=== PATIENT | female | born 1990 | race Caucasian/White ===

== ENCOUNTER 2022-12-23 02:12 | Inpatient (IN) | payer OTHER, SELFPAY ==
[2022-12-23 02:42] VITALS: BP 129/97; PULSE 79; RESP 18; TEMP 37.1; O2SAT 98; BMI 34.9
[2022-12-23 03:08] LABS: Hematocrit 46.8 % (37.0-47.0); Hemoglobin 15.6 g/dl (12.0-16.0); Mean Corpuscular HGB Conc 33.3 g/dl (31.0-35.0); Mean Corpuscular Hemoglobin 29.8 pg (27.0-33.0); Mean Corpuscular Volume 89.3 fL (80.0-98.0); Mean Platelet Volume 10.4 fL (9.4-12.3); Platelet Count 258 X10*3/uL (160-400); Red Blood Count 5.24 X10*6/uL (4.20-5.50); Red Cell Distribution Width 13.5 % (11.0-16.0); White Blood Count 10.9 X10*3/uL (4.8-10.8)
[2022-12-23 03:20] LABS: Anion Gap 16 (12-20); Blood Urea Nitrogen 7 mg/dL (9-16); Calcium 9.9 mg/dL (8.4-10.2); Carbon Dioxide 23 mmol/L (22-29); Chloride 106 mmol/L (96-108); Creatinine Clr Calc Pharmacy 96.1; Estimated Glomerular Filt Rate > 60; Glucose Random 102 mg/dL (60-115); Potassium 3.8 mmol/L (3.3-5.1); Sodium 141 mmol/L (135-145)
[2022-12-23 03:27] LABS: COVID-19 Test Negative (Negative); IDNOW Serial# 6674DD1D
--- NOTE | 2022-12-23 03:30 | ED_ITS ---
HPI - Psych General Chief Complaint: Psychiatric Symptoms Stated Complaint: CRISIS Time Seen by Provider: 12/23/22 03:04 Source: patient Mode of arrival: ambulatory Limitations: no limitations History of Present Illness HPI Narrative: Patient history of depression used to be on Zoloft started on Prozac for last 1 month and feels is not working and making suicidal with homicidal thoughts, with Zoloft she was sleeping a lot. No hallucination or delusion no suicidal plan as such Related Data Allergies Allergy/AdvReac Type Severity Reaction Status Date / Time No Known Allergies Allergy Verified 12/23/22 02:46 [No Known Allergies*] Review of Systems Review of Systems: Yes all other systems are reviewed and are negative [facility] Social History Social History Advance Directives: No Advance Directives Information Provided: Yes Patient : No Physical Exam Vital Signs: Vital Signs: Last Vital Signs Temp 98.8 F 12/23/22 02:42 Pulse 79 12/23/22 02:42 Resp 18 12/23/22 02:42 BP 129/97 H 12/23/22 02:42 Pulse Ox 98 12/23/22 02:42 O2 Del Method 12/23/22 02:42 BMI result Body Mass Index 34.9 Appearance: Alert. Oriented X3. No acute distress. Eyes: PERRLA, No Nystagmus ENT: Pharynx normal. Oral Mucosa moist Neck: Normal inspection. Neck supple. CVS: Normal heart rate and rhythm. Pulses normal. Respiratory: No respiratory distress. Equal air entry bilateral, no wheezing/rales/rhonchi Abdomen: Soft and nontender. Bowel sounds are present, no mass palpable, no CVA tenderness Skin: Skin warm and dry. Normal skin color. Normal skin turgor. Extremities: No lower extremity edema. No calf tenderness psych: Mood stable no current suicidal thoughts no hallucinations or delusions Neuro: Oriented X 3. No motor deficit. No sensory deficit.No cerebellar signs , cranial nerves II-XII intact Medical Decision Making Medical Decision Making MDM Narrative: Patient depression with increased suicidal thoughts medically cleared for psych care team evaluation Lab Data [facility] Lab Attestation statement: I reviewed the patient's lab results. 12/23/22 03:01 12/23/22 03:01 Labs: Lab Results 12/23/22 12/23/22 12/23/22 Range/Units 02:54 03:01 03:01 WBC 10.9 H (4.8-10.8) X10*3/uL RBC 5.24 (4.20-5.50) X10*6/uL Hgb 15.6 (12.0-16.0) g/dl Hct 46.8 (37.0-47.0) % MCV 89.3 (80.0-98.0) fL MCH 29.8 (27.0-33.0) pg MCHC 33.3 (31.0-35.0) g/dl RDW 13.5 (11.0-16.0) % Plt Count 258 (160-400) X10*3/uL MPV 10.4 (9.4-12.3) fL Absolute Nucleated RBC 0.000 (0.0-0.012) X10*3/uL Nucleated RBC % (auto) 0.0 (0.0-0.2) /100WBC Sodium 141 (135-145) mmol/L Potassium 3.8 (3.3-5.1) mmol/L Chloride 106 (96-108) mmol/L Carbon Dioxide 23 (22-29) mmol/L Anion Gap 16 (12-20) BUN 7 L (9-16) mg/dL Creatinine 0.80 (0.5-1.4) mg/dL Estim Creat Clear Calc 96.1 Estimated GFR > 60 Random Glucose 102 (60-115) mg/dL Calcium 9.9 (8.4-10.2) mg/dL COVID-19 (KYLEE) Negative (Negative) COVID-19 Clin Com See Note Discharge Plan Discharge Clinical Impression: Suicidal ideation, Bipolar disorder Patient Disposition: Still a Patient Interventions: Jenkins-Suicide Risk Severity Scale Last Done: 12/23/22 03:26
--- NOTE | 2022-12-23 06:24 | PC.NURSE ---
Pt resting comfortably on stretcher at this time, denies pain. SI with no plan at this time
--- NOTE | 2022-12-23 07:29 | PC.NURSE ---
Pt resting on stretcher. Patient observer at bedside for 1:1.
--- NOTE | 2022-12-23 11:12 | PC.NURSE ---
Meeting with care team
--- NOTE | 2022-12-23 12:08 | MHC.CARE ---
Pt seen by CARE team and is seeking voluntary inpatient level of care admission, pending transfer to .
--- NOTE | 2022-12-23 15:38 | PC.NURSE ---
Received pt from ED, calm and cooperative. Lunch tray given.
[2022-12-23 19:26] LABS: Amphetamine Screen Urine Not Detected (Not Detect); Barbiturates, Urine Not Detected (Not Detect); Benzodiazepines Screen Urine Not Detected (Not Detect); Cannabinoid Screen Urine Not Detected (Not Detect); Cocaine Screen Urine Not Detected (Not Detect); Fentanyl, urine Not Detected (Not Detect); Opiate Screen Urine Not Detected (Not Detect); Phencyclidine Screen Urine Not Detected (Not Detect)
[2022-12-23 19:38] LABS: Appearance Urine Clear; Color Urine Dark Yellow; Glucose Urine UA Negative (Negative); Leukocyte Esterase Urine Trace (Negative); Nitrite Urine Negative (Negative); PH 6.5 (5.0-9.0); Specific Gravity - Urine >= 1.030 (1.005-1.025); UMIC TRIGGER UA YES; UPreg QC Valid YES; Urine Blood Negative (Negative); Urine Ketones Negative (Negative); Urine Pregnancy NEGATIVE (NEGATIVE); Urine Protein 30 (1+) mg/dL (Neg-Trace)
[2022-12-23 19:43] LABS: Bacteria Urine None Seen (None Seen); Hyaline Casts Urine 0-2 /LPF (0-2); RBC Urine 0-2 /HPF (0-2); Squamous Epithelial Cell Urine 0-2 /HPF (0-2); WBC Urine 0-5 /HPF (0-5)
[2022-12-23 20:40] VITALS: BP 145/79; PULSE 85; TEMP 36.3; O2SAT 97
--- NOTE | 2022-12-23 23:18 | PC.ADMIT ---
Patient is a 32 year old single, Mohawk speaking female admitted as a CV admission to at 2120 and placed on 15 minute safety checks. Patient was medically cleared, evaluated by the CARE team and deemed in need of IPLOC secondary to her SI thoughts. Patient said she was titrated off Zoloft and started Prozac over one month ago. Patient self presented to the [facility] because the suicidal thoughts are not normal for her. She has no previous history of IPLOC and is not familiar to the CARE team. During the admission process patient was cooperative but somewhat reticent to offer much information and seemed a bit nervous answering questions. She did say that she was not currently having any SI but would alert staff. She said that she needs to have her medications evaluated and see if she needs to be on a different type of medication(s). Patient mentioned in passing, Maybe I'm Bipolar or something . Patient's treatment plan and safety tool were completed but need to be signed.
[2022-12-24 07:00] VITALS: BMI 34.4
[2022-12-24] MEDS: cloNIDine HCL 0.1 MG TABLET PO ×2 (08:32→19:12)
[2022-12-24] MEDS: hydrOXYzine HCL 25 MG TABLET PO (08:35)
[2022-12-24 08:40] VITALS: BP 136/65; PULSE 83; RESP 16; TEMP 36.6; O2SAT 96
[2022-12-24] MEDS: diphenhydrAMINE HCL 25 MG CAPSULE PO (16:28)
[2022-12-24 16:39] VITALS: BP 128/74; PULSE 68; RESP 16; TEMP 36.6; O2SAT 98
--- NOTE | 2022-12-24 17:03 | P.HPPS_ITS ---
HPI Date of Service: 12/24/22 Chief Complaint: CRISIS Sources of Information: patient interviewed, chart reviewed and crisis/core team assessment reviewed HPI Subjective Notes: Weaver Warning and Conditional Voluntary Healthcare Proxy: No Guardianship: No Medical Problems Affecting Mental Status: No Narrative: 32 yo female, mother of an eight year old son, presents for treatment of depression and anxiety. Reports a recent medication change from Sertraline to Fluoxetine. Sertraline she found ineffective- with lethargy, feeling tired much of the time and no improvement in depressive sx- I just wanted to sleep all of the time , Fluoxetine she found increased active SI, gave me crazy thoughts. This sx frightened her and she presented for treatment. Reports depressive sx- anergy, amotivation, isolative, lability, poor sleep, appetite, SI Past Psychiatric History: OP: [facility] for medications Referred for psychotherapy but missed the call. IP: This is her first Trials: Sertraline, Fluoxetine Medical Evaluation Reviewed: Yes PMF Narrative: L foot surgery by history Family History: Bipolar Disorder Depression, Anxiety Social History: Born in [place], Raised in the [place], 2 brothers, 1 sister. Raised by mom- old-fashioned upbringing . Parents living-no contact with father. Graduated high school. Mother of an eight year old son Substance History: Nicotine, 1 PPD Trauma History: affirms Diagnostics Vital Signs (24Hr): Vital Signs - 24 hr 12/23/22 20:40 12/24/22 08:40 12/24/22 16:39 Temperature 97.3 F 97.9 F 97.8 F Pulse Rate 85 83 68 Respiratory Rate 16 16 Blood Pressure 145/79 H 136/65 128/74 Pulse Oximetry 97 96 98 Oxygen Delivery Method Room Air Room Air Room Air BMI result Body Mass Index 34.4 Labs 12/23/22 03:01 12/23/22 03:01 Labs: Laboratory Results - last 48 hr 12/23/22 12/23/22 12/23/22 02:54 03:01 03:01 WBC 10.9 H RBC 5.24 Hgb 15.6 Hct 46.8 MCV 89.3 MCH 29.8 MCHC 33.3 RDW 13.5 Plt Count 258 MPV 10.4 Absolute Nucleated RBC 0.000 Nucleated RBC % (auto) 0.0 Sodium 141 Potassium 3.8 Chloride 106 Carbon Dioxide 23 Anion Gap 16 BUN 7 L Creatinine 0.80 Estim Creat Clear Calc 96.1 Estimated GFR > 60 Random Glucose 102 Calcium 9.9 Urine Color Urine Appearance Urine pH Ur Specific [place] Urine Protein Urine Glucose (UA) Urine Ketones Urine Blood Urine Nitrite Ur Leukocyte Esterase Urine RBC Urine WBC Ur Squamous Epith Cells Urine Bacteria Hyaline Casts Urine Test Urine Opiates Screen Urine Fentanyl Screen Ur Barbiturates Screen Ur Phencyclidine Scrn Ur Amphetamines Screen U Benzodiazepines Scrn Urine Cocaine Screen U Marijuana (THC) Screen COVID-19 (KYLEE) Negative COVID-19 Clin Com See Note 12/23/22 12/23/22 12/23/22 19:08 19:08 19:08 WBC RBC Hgb Hct MCV MCH MCHC RDW Plt Count MPV Absolute Nucleated RBC Nucleated RBC % (auto) Sodium Potassium Chloride Carbon Dioxide Anion Gap BUN Creatinine Estim Creat Clear Calc Estimated GFR Random Glucose Calcium Urine Color Dark Yellow Urine Appearance Clear Urine pH 6.5 Ur Specific [place] >= 1.030 H Urine Protein 30 (1+) H Urine Glucose (UA) Negative Urine Ketones Negative Urine Blood Negative Urine Nitrite Negative Ur Leukocyte Esterase Trace H Urine RBC 0-2 Urine WBC 0-5 Ur Squamous Epith Cells 0-2 Urine Bacteria None Seen Hyaline Casts 0-2 Urine Test NEGATIVE Urine Opiates Screen Not Detected Urine Fentanyl Screen Not Detected Ur Barbiturates Screen Not Detected Ur Phencyclidine Scrn Not Detected Ur Amphetamines Screen Not Detected U Benzodiazepines Scrn Not Detected Urine Cocaine Screen Not Detected U Marijuana (THC) Screen Not Detected COVID-19 (KYLEE) COVID-19 [employer] Com Meds/Allergies Meds Home Medications Medication Instructions Recorded Confirmed Type clonidine HCl 0.1 mg tablet 1 tab PO BID 12/23/22 12/23/22 History diphenhydramine HCl 25 mg capsule 1 cap PO BEDTIME PRN Anxiety 12/23/22 12/23/22 History (Banophen) fluoxetine 10 mg tablet 1 tab PO QAM 12/23/22 12/23/22 History hydroxyzine HCl 25 mg tablet 1 tab PO DAILY 12/23/22 12/23/22 History Allergies Allergies Allergy/AdvReac Type Severity Reaction Status Date / Time prozac AdvReac Severe suicidal Uncoded 12/24/22 17:59 ideation Mental Status Exam Mental Status Exam Patient Appearance: Fatigued and Appropriate Patient Orientation: Person, Place, Time and Situation Level of Consciousness: Alert Patient Behavior: Talkative and Good Eye Contact Mood Description: Depressed, Anxious and Apprehensive Affect Description: Flat Patient Cognition Impaired: No Ability to Follow Directions: Good Speech Pattern: Spontaneous Speech Memory Description: Intact Hallucinations: None Delusions: Not Present Thought Process: Rumination Thought Content: positive for Perseveration Depressive Symptoms: Increased Anxiety and Increased Irritability Judgement: Fair Assessment & Plan Assessment & Plan (1) Bipolar disorder: Status: Acute Code(s): F31.9 - Bipolar disorder, unspecified (2) Suicidal ideation: Status: Acute Code(s): R45.851 - Suicidal ideations Plan 32 yo female, recent change in antidepressants which led to active SI. Discussed possible bipolar depressive sx vs unipolar as pt has a strong family history. Plan: Trileptal 300 mg bid Gabapentin 300 mg tid prn anxiety Collateral contact Diagnostics as needed Patient educated on: diagnosis, medication risk/benefits and therapeutic strategies Informed Consent: understands and further education needed Reason for continued inpatient stay Substantial Risk for: harm to self and rapid decompensation Statement Statement: I have reviewed the history and physical and performed a pertinent examination on my patient. No changes have occurred unless specified. If the History and Physical was not performed prior to admission, the Hospitalist's service will be consulted for completing the admission physical. Time Spent With Patient Time: Total time managing care of this patient today 45 minutes.
[2022-12-24] MEDS: OXcarbazepine 300 MG TABLET PO (19:12)
[2022-12-25] MEDS: cloNIDine HCL 0.1 MG TABLET PO ×2 (08:41→20:57)
[2022-12-25] MEDS: OXcarbazepine 300 MG TABLET PO ×2 (08:41→20:58)
[2022-12-25] MEDS: Nicotine 21 MG PATCH.TD24 TRANSDERMA (08:41)
[2022-12-25] MEDS: hydrOXYzine HCL 25 MG TABLET PO ×2 (08:41→16:03)
[2022-12-25 08:43] VITALS: BP 117/60; PULSE 70; RESP 16; TEMP 36.6; O2SAT 95
--- NOTE | 2022-12-25 17:20 | HO.PSYCHPN ---
Subjective Subjective Date of Service: 12/25/22 Reason For Visit: CRISIS Subjective Notes: Conditional Voluntary Healthcare Proxy: No Guardianship: No Medical Problems Affecting Mental Status: No Interim History: Met with pt and Ranjith MEZA. Tolerating Trileptal Resolving response from Fluoxetine Discussed treatment planning and discharge for early next week. Medication Compliance: Yes Side effects from medications: No Attending Groups: Intermittent Review of Systems Acute medical concerns: No Medical Review of Systems: unchanged Mental Status Exam Mental Status Exam Patient Appearance: Fatigued and Appropriate Patient Orientation: Person, Place, Time and Situation Level of Consciousness: Alert Patient Behavior: Talkative and Good Eye Contact Mood Description: Depressed, Anxious and Apprehensive Affect Description: Flat Patient Cognition Impaired: No Ability to Follow Directions: Good Speech Pattern: Spontaneous Speech Memory Description: Intact Hallucinations: None Delusions: Not Present Thought Process: Rumination Thought Content: positive for Perseveration Depressive Symptoms: Increased Anxiety and Increased Irritability Judgement: Fair Diagnostics Vital Signs (24Hr): Vital Signs - 24 hr 12/25/22 08:43 Temperature 97.9 F Pulse Rate 70 Respiratory Rate 16 Blood Pressure 117/60 Pulse Oximetry 95 Oxygen Delivery Method Room Air BMI result Body Mass Index 34.4 Labs 12/23/22 03:01 12/23/22 03:01 Labs: Laboratory Results - last 48 hr 12/23/22 12/23/22 12/23/22 19:08 19:08 19:08 Urine Color Dark Yellow Urine Appearance Clear Urine pH 6.5 Ur Specific [place] >= 1.030 H Urine Protein 30 (1+) H Urine Glucose (UA) Negative Urine Ketones Negative Urine Blood Negative Urine Nitrite Negative Ur Leukocyte Esterase Trace H Urine RBC 0-2 Urine WBC 0-5 Ur Squamous Epith Cells 0-2 Urine Bacteria None Seen Hyaline Casts 0-2 Urine Test NEGATIVE Urine Opiates Screen Not Detected Urine Fentanyl Screen Not Detected Ur Barbiturates Screen Not Detected Ur Phencyclidine Scrn Not Detected Ur Amphetamines Screen Not Detected U Benzodiazepines Scrn Not Detected Urine Cocaine Screen Not Detected U Marijuana (THC) Screen Not Detected Medications Medications Current Medications Acetaminophen (Acetaminophen 325 Mg Tablet) 650 mg PO Q6H PRN PRN Reason: Headache/Pain Mild Scale (1-3) Al Hydroxide/Mg Hydroxide (Magnesium Hydrox/Alum Hydrox 30 Ml Oral.Susp) 30 ml PO Q6H PRN PRN Reason: Heartburn/Nausea Clonidine HCl (Clonidine Hcl 0.1 Mg Tablet) 0.1 mg PO BID [facility]; Protocol Last Admin: 12/25/22 08:41 Dose: 0.1 mg Diphenhydramine HCl (Diphenhydramine Hcl 25 Mg Capsule) 25 mg PO BEDTIME PRN PRN Reason: Anxiety Last Admin: 12/24/22 16:28 Dose: 25 mg Gabapentin (Gabapentin 300 Mg Capsule) 300 mg PO TID PRN PRN Reason: anxiety Hydroxyzine HCl (Hydroxyzine Hcl 25 Mg Tablet) 25 mg PO DAILY [facility] Last Admin: 12/25/22 08:41 Dose: 25 mg Hydroxyzine HCl (Hydroxyzine Hcl 25 Mg Tablet) 25 mg PO Q6H PRN PRN Reason: anxiety Last Admin: 12/25/22 16:03 Dose: 25 mg Magnesium Hydroxide (Milk Of Magnesia 30 Ml Oral.Susp) 30 ml PO DAILY PRN PRN Reason: Constipation Nicotine (Nicotine 21 Mg Patch.Td24) 21 mg TRANSDERMA DAILY [facility] Last Admin: 12/25/22 08:41 Dose: 21 mg Nicotine Polacrilex (Nicotine Polacrilex 2 Mg Gum) 2 mg BUCCAL Q2H PRN PRN Reason: Nicotine Cravings Oxcarbazepine (Oxcarbazepine 300 Mg Tablet) 300 mg PO BID [facility] Last Admin: 12/25/22 08:41 Dose: 300 mg Trazodone HCl (Trazodone Hcl 50 Mg Tablet) 50 mg PO BEDTIME MRX1 PRN PRN Reason: Insomnia Triamcinolone Acetonide (Triamcinolone Acet 0.1 % Oint 15 Gm Tube) 1 appl TOPICAL DAILY [facility] Allergies Allergies Allergy/AdvReac Type Severity Reaction Status Date / Time prozac AdvReac Severe suicidal Uncoded 12/24/22 17:59 ideation Assessment & Plan Assessment & Plan (1) Bipolar disorder: Status: Acute Code(s): F31.9 - Bipolar disorder, unspecified (2) Suicidal ideation: Status: Acute Code(s): R45.851 - Suicidal ideations Plan 32 yo female, recent change in antidepressants which led to active SI. Discussed possible bipolar depressive sx vs unipolar as pt has a strong family history. Plan: Trileptal 300 mg bid Gabapentin 300 mg tid prn anxiety Collateral contact Diagnostics as needed 12/25/22: Triamcinolone cream daily Hydroxyzine prn Sleeping is improved Discharge early next week. Patient educated on: therapeutic strategies Informed Consent: understands and further education needed Reason for contiued inpatient stay Substantial Risk for: rapid decompensation Time Spent With Patient Time: Total time managing care of this patient today 25 minutes.
[2022-12-25 18:00] VITALS: BP 120/75; PULSE 85; RESP 16; TEMP 36.4; O2SAT 98
[2022-12-25] MEDS: Gabapentin 300 MG CAPSULE PO (20:28)
[2022-12-26] MEDS: traZODone HCL 50 MG TABLET PO (00:36)
[2022-12-26 08:48] VITALS: BP 123/80; PULSE 91; RESP 18; TEMP 36.7
[2022-12-26] MEDS: cloNIDine HCL 0.1 MG TABLET PO ×2 (08:49→20:03)
[2022-12-26] MEDS: hydrOXYzine HCL 25 MG TABLET PO (08:49)
[2022-12-26] MEDS: OXcarbazepine 300 MG TABLET PO ×2 (08:49→20:03)
[2022-12-26] MEDS: Nicotine 21 MG PATCH.TD24 TRANSDERMA (09:04)
--- NOTE | 2022-12-26 11:00 | P.PNPSI_ITS ---
Subjective Subjective Date of Service: 12/26/22 Reason For Visit: CRISIS Interim History: Patient seen. Tolerating Trileptal. Feels it is more helpful than previous regimen. Better since stopping prozac. Denies SI. Sleep is good. Review of Systems Review of Systems Yes all other systems are reviewed and are negative Eyes: Reports no additional eye complaints Reports system reviewed and no additional complaints, except as documented Cardiovascular: Reports no additional cardiovascular complaints Respiratory: Reports no additional respiratory complaints Gastrointestinal: Reports no additional gastrointestinal complaints Musculoskeletal: Reports no additional musculoskeletal complaints Skin/Breast: Reports system reviewed and no additional complaints, except as docu Reports system reviewed and no additional complaints, except as documented and Reports behavioral changes Psychiatric: Reports abnormal sleep pattern, Reports anxiety, Reports behavioral changes, Reports change in appetite, Reports depression, Reports difficulty concentrating, Reports hopelessness, Reports irritability, Reports anhedonia, Reports mood swings and Reports suicidal ideation Endocrine: Reports no additional endocrine complaints Hematologic/Lymphatic: Reports no additional hematologic/lymphatic complaints Allergic/Immunologic: Reports no additional allergic/immunologic complaints Mental Status Exam Mental Status Exam Patient Appearance: Fatigued and Appropriate Patient Orientation: Person, Place, Time and Situation Level of Consciousness: Alert Patient Behavior: Talkative and Good Eye Contact Mood Description: Depressed, Anxious and Apprehensive Affect Description: Flat Patient Cognition Impaired: No Ability to Follow Directions: Good Speech Pattern: Spontaneous Speech Memory Description: Intact Diagnostics Vital Signs (24Hr): Vital Signs - 24 hr 12/26/22 08:48 Temperature 98.0 F Pulse Rate 91 Respiratory Rate 18 Blood Pressure 123/80 Oxygen Delivery Method Room Air BMI result Body Mass Index 34.4 Labs 12/23/22 03:01 12/23/22 03:01 Medications Medications Current Medications Acetaminophen (Acetaminophen 325 Mg Tablet) 650 mg PO Q6H PRN PRN Reason: Headache/Pain Mild Scale (1-3) Al Hydroxide/Mg Hydroxide (Magnesium Hydrox/Alum Hydrox 30 Ml Oral.Susp) 30 ml PO Q6H PRN PRN Reason: Heartburn/Nausea Clonidine HCl (Clonidine Hcl 0.1 Mg Tablet) 0.1 mg PO BID ALBINA; Protocol Last Admin: 12/26/22 08:49 Dose: 0.1 mg Diphenhydramine HCl (Diphenhydramine Hcl 25 Mg Capsule) 25 mg PO BEDTIME PRN PRN Reason: Anxiety Last Admin: 12/24/22 16:28 Dose: 25 mg Gabapentin (Gabapentin 300 Mg Capsule) 300 mg PO TID PRN PRN Reason: anxiety Last Admin: 12/26/22 16:36 Dose: 300 mg Hydroxyzine HCl (Hydroxyzine Hcl 25 Mg Tablet) 25 mg PO DAILY [facility] Last Admin: 12/26/22 08:49 Dose: 25 mg Hydroxyzine HCl (Hydroxyzine Hcl 25 Mg Tablet) 25 mg PO Q6H PRN PRN Reason: anxiety Last Admin: 12/25/22 16:03 Dose: 25 mg Magnesium Hydroxide (Milk Of Magnesia 30 Ml Oral.Susp) 30 ml PO DAILY PRN PRN Reason: Constipation Nicotine (Nicotine 21 Mg Patch.Td24) 21 mg TRANSDERMA DAILY [facility] Last Admin: 12/26/22 09:04 Dose: 21 mg Nicotine Polacrilex (Nicotine Polacrilex 2 Mg Gum) 2 mg BUCCAL Q2H PRN PRN Reason: Nicotine Cravings Oxcarbazepine (Oxcarbazepine 300 Mg Tablet) 300 mg PO BID [facility] Last Admin: 12/26/22 08:49 Dose: 300 mg Trazodone HCl (Trazodone Hcl 50 Mg Tablet) 50 mg PO BEDTIME MRX1 PRN PRN Reason: Insomnia Last Admin: 12/26/22 00:36 Dose: 50 mg Triamcinolone Acetonide (Triamcinolone Acet 0.1 % Oint 15 Gm Tube) 1 appl TOPICAL DAILY [facility] Last Admin: 12/26/22 09:05 Dose: Not Given Allergies Allergies Allergy/AdvReac Type Severity Reaction Status Date / Time prozac AdvReac Severe suicidal Uncoded 12/24/22 17:59 ideation Assessment & Plan Assessment & Plan (1) Bipolar disorder: Status: Acute Code(s): F31.9 - Bipolar disorder, unspecified (2) Suicidal ideation: Status: Acute Code(s): R45.851 - Suicidal ideations Plan 32 yo female, recent change in antidepressants which led to active SI. Discussed possible bipolar depressive sx vs unipolar as pt has a strong family history. Plan: Trileptal 300 mg bid Gabapentin 300 mg tid prn anxiety Collateral contact Diagnostics as needed 12/25/22: Triamcinolone cream daily Hydroxyzine prn Sleeping is improved Discharge early next week. 12/26: Contiue current plan Reason for contiued inpatient stay Substantial Risk for: harm to self and rapid decompensation Time Spent With Patient Time: Total time managing care of this patient today ____ minutes.
[2022-12-26] MEDS: Gabapentin 300 MG CAPSULE PO ×2 (16:36→21:54)
[2022-12-26 20:36] VITALS: BP 133/84; PULSE 92; RESP 16; TEMP 36.4; O2SAT 98
[2022-12-27 08:25] VITALS: BP 120/58; PULSE 93; RESP 18; TEMP 36.8; O2SAT 99
[2022-12-27] MEDS: cloNIDine HCL 0.1 MG TABLET PO ×2 (08:27→20:25)
[2022-12-27] MEDS: OXcarbazepine 300 MG TABLET PO ×2 (08:27→20:25)
[2022-12-27] MEDS: hydrOXYzine HCL 25 MG TABLET PO ×2 (08:27→16:00)
[2022-12-27] MEDS: Nicotine 21 MG PATCH.TD24 TRANSDERMA (08:27)
--- NOTE | 2022-12-27 10:55 | HO.PSYCHPN ---
Subjective Subjective Date of Service: 12/27/22 Reason For Visit: CRISIS Interim History: Patient seen. Tolerating Trileptal. Feels it is more helpful than previous regimen. Better since stopping prozac. Denies SI. Sleep is good. Review of Systems Review of Systems Yes all other systems are reviewed and are negative Eyes: Reports no additional eye complaints Reports system reviewed and no additional complaints, except as documented Cardiovascular: Reports no additional cardiovascular complaints Respiratory: Reports no additional respiratory complaints Gastrointestinal: Reports no additional gastrointestinal complaints Musculoskeletal: Reports no additional musculoskeletal complaints Skin/Breast: Reports system reviewed and no additional complaints, except as docu Reports system reviewed and no additional complaints, except as documented and Reports behavioral changes Psychiatric: Reports abnormal sleep pattern, Reports anxiety, Reports behavioral changes, Reports change in appetite, Reports depression, Reports difficulty concentrating, Reports hopelessness, Reports irritability, Reports anhedonia, Reports mood swings and Reports suicidal ideation Endocrine: Reports no additional endocrine complaints Hematologic/Lymphatic: Reports no additional hematologic/lymphatic complaints Allergic/Immunologic: Reports no additional allergic/immunologic complaints Mental Status Exam Mental Status Exam Patient Appearance: Fatigued and Appropriate Patient Orientation: Person, Place, Time and Situation Level of Consciousness: Alert Patient Behavior: Talkative and Good Eye Contact Mood Description: Depressed, Anxious and Apprehensive Affect Description: Flat Patient Cognition Impaired: No Ability to Follow Directions: Good Speech Pattern: Spontaneous Speech Memory Description: Intact Diagnostics Vital Signs (24Hr): Vital Signs - 24 hr 12/26/22 20:36 12/27/22 08:25 12/27/22 18:00 Temperature 97.5 F 98.3 F 97.2 F Pulse Rate 92 93 90 Respiratory Rate 16 18 18 Blood Pressure 133/84 120/58 L 140/69 H Pulse Oximetry 98 99 99 Oxygen Delivery Method Room Air Room Air BMI result Body Mass Index 34.4 Labs 12/23/22 03:01 12/23/22 03:01 Medications Medications Current Medications Acetaminophen (Acetaminophen 325 Mg Tablet) 650 mg PO Q6H PRN PRN Reason: Headache/Pain Mild Scale (1-3) Al Hydroxide/Mg Hydroxide (Magnesium Hydrox/Alum Hydrox 30 Ml Oral.Susp) 30 ml PO Q6H PRN PRN Reason: Heartburn/Nausea Clonidine HCl (Clonidine Hcl 0.1 Mg Tablet) 0.1 mg PO BID [facility]; Protocol Last Admin: 12/27/22 08:27 Dose: 0.1 mg Diphenhydramine HCl (Diphenhydramine Hcl 25 Mg Capsule) 25 mg PO BEDTIME PRN PRN Reason: Anxiety Last Admin: 12/24/22 16:28 Dose: 25 mg Diphenhydramine HCl (Diphenhydramine Hcl 25 Mg Capsule) 25 mg PO Q4H PRN PRN Reason: Itching Last Admin: 12/27/22 14:35 Dose: 25 mg Gabapentin (Gabapentin 300 Mg Capsule) 300 mg PO TID PRN PRN Reason: anxiety Last Admin: 12/27/22 18:00 Dose: 300 mg Hydroxyzine HCl (Hydroxyzine Hcl 25 Mg Tablet) 25 mg PO DAILY [facility] Last Admin: 12/27/22 08:27 Dose: 25 mg Hydroxyzine HCl (Hydroxyzine Hcl 25 Mg Tablet) 25 mg PO Q6H PRN PRN Reason: anxiety Last Admin: 12/27/22 16:00 Dose: 25 mg Magnesium Hydroxide (Milk Of Magnesia 30 Ml Oral.Susp) 30 ml PO DAILY PRN PRN Reason: Constipation Nicotine (Nicotine 21 Mg Patch.Td24) 21 mg TRANSDERMA DAILY [facility] Last Admin: 12/27/22 08:27 Dose: 21 mg Nicotine Polacrilex (Nicotine Polacrilex 2 Mg Gum) 2 mg BUCCAL Q2H PRN PRN Reason: Nicotine Cravings Oxcarbazepine (Oxcarbazepine 300 Mg Tablet) 300 mg PO BID [facility] Last Admin: 12/27/22 08:27 Dose: 300 mg Trazodone HCl (Trazodone Hcl 50 Mg Tablet) 50 mg PO BEDTIME MRX1 PRN PRN Reason: Insomnia Last Admin: 12/26/22 00:36 Dose: 50 mg Triamcinolone Acetonide (Triamcinolone Acet 0.1 % Oint 15 Gm Tube) 1 appl TOPICAL DAILY [facility] Last Admin: 12/27/22 12:22 Dose: 1 appl Allergies Allergies Allergy/AdvReac Type Severity Reaction Status Date / Time prozac AdvReac Severe suicidal Uncoded 12/24/22 17:59 ideation Assessment & Plan Assessment & Plan (1) Bipolar disorder: Status: Acute Code(s): F31.9 - Bipolar disorder, unspecified (2) Suicidal ideation: Status: Acute Code(s): R45.851 - Suicidal ideations Plan 32 yo female, recent change in antidepressants which led to active SI. Discussed possible bipolar depressive sx vs unipolar as pt has a strong family history. Plan: Trileptal 300 mg bid Gabapentin 300 mg tid prn anxiety Collateral contact Diagnostics as needed 12/25/22: Triamcinolone cream daily Hydroxyzine prn Sleeping is improved Discharge early next week. 12/26: Contiue current plan 12/27: Contiue current plan Reason for contiued inpatient stay Substantial Risk for: harm to self, inability to function and rapid decompensation Time Spent With Patient Time: Total time managing care of this patient today ____ minutes.
[2022-12-27] MEDS: Triamcinolone Acet 0.1 % Oint 15 GM TUBE 1 APPL TOPICAL (12:22)
[2022-12-27] MEDS: diphenhydrAMINE HCL 25 MG CAPSULE PO ×2 (14:35→20:24)
[2022-12-27 18:00] VITALS: BP 140/69; PULSE 90; RESP 18; TEMP 36.2; O2SAT 99
[2022-12-27] MEDS: Gabapentin 300 MG CAPSULE PO (18:00)
[2022-12-27] MEDS: traZODone HCL 50 MG TABLET PO (20:25)
[2022-12-28 06:00] VITALS: BP 104/67; PULSE 87; RESP 18; TEMP 37.2; O2SAT 99
[2022-12-28] MEDS: hydrOXYzine HCL 25 MG TABLET PO (08:37)
[2022-12-28] MEDS: Nicotine 21 MG PATCH.TD24 TRANSDERMA (08:37)
[2022-12-28] MEDS: cloNIDine HCL 0.1 MG TABLET PO (08:38)
[2022-12-28] MEDS: OXcarbazepine 300 MG TABLET PO (08:38)
[2022-12-28] MEDS: Triamcinolone Acet 0.1 % Oint 15 GM TUBE 1 APPL TOPICAL (08:42)
--- NOTE | 2022-12-28 13:02 | P.DS_ITS ---
DS: Providers Provider Date of Service: 12/28/22 Date of admission: 12/23/22 21:09 Date of discharge: 12/28/22 Primary care physician: None Physician Admitting clinician: Laquita Gooden Attending physician on admission: Stas Haywood DS: Diagnosis Discharge Diagnosis (1) Bipolar disorder: Status: Acute (2) Suicidal ideation: Status: Resolved DS: Medications Discharge Medications Home Medications: Home Medications Medication Instructions Recorded Confirmed diphenhydramine HCl 25 mg capsule 1 cap PO BEDTIME PRN Anxiety 12/23/22 12/23/22 (Banophen) Previous Rx's Medication Instructions Recorded clonidine HCl 0.1 mg tablet 1 tab PO BID #60 tabs 12/28/22 gabapentin 300 mg capsule 300 mg PO TID PRN anxiety #90 caps 12/28/22 hydroxyzine HCl 25 mg tablet 1 tab PO DAILY #30 tabs 12/28/22 nicotine (polacrilex) 2 mg gum 2 mg buccal Q2H PRN Nicotine 12/28/22 Cravings #60 ea nicotine 21 mg/24 hr daily 21 mg transdermal DAILY #30 ea 12/28/22 transdermal patch oxcarbazepine 300 mg tablet 300 mg PO BID #60 tabs 12/28/22 triamcinolone acetonide 0.1 % 1 appl topical DAILY #10 12/28/22 topical ointment applicators Mental Status Exam Mental Status Exam Patient Appearance: Fatigued and Appropriate Patient Orientation: Person, Place, Time and Situation Level of Consciousness: Alert Patient Behavior: Talkative and Good Eye Contact Mood Description: Apprehensive Affect Description: Flat Patient Cognition Impaired: No Ability to Follow Directions: Good Speech Pattern: Spontaneous Speech Memory Description: Intact Hallucinations: None Delusions: Not Present Depressive Symptoms: Increased Anxiety and Increased Irritability Judgement: Good Data Data Completed and Pending Completed studies during hospitalization [Text1]: 12/23/22 12/23/22 12/23/22 02:54 03:01 03:01 WBC 10.9 H RBC 5.24 Hgb 15.6 Hct 46.8 MCV 89.3 MCH 29.8 MCHC 33.3 RDW 13.5 Plt Count 258 MPV 10.4 Absolute Nucleated RBC 0.000 Nucleated RBC % (auto) 0.0 Sodium 141 Potassium 3.8 Chloride 106 Carbon Dioxide 23 Anion Gap 16 BUN 7 L Creatinine 0.80 Estim Creat Clear Calc 96.1 Estimated GFR > 60 Random Glucose 102 Calcium 9.9 Urine Color Urine Appearance Urine pH Ur Specific [place] Urine Protein Urine Glucose (UA) Urine Ketones Urine Blood Urine Nitrite Ur Leukocyte Esterase Urine RBC Urine WBC Ur Squamous Epith Cells Urine Bacteria Hyaline Casts Urine Test Urine Opiates Screen Urine Fentanyl Screen Ur Barbiturates Screen Ur Phencyclidine Scrn Ur Amphetamines Screen U Benzodiazepines Scrn Urine Cocaine Screen U Marijuana (THC) Screen COVID-19 ([facility]) Negative COVID-19 Clin Com See Note 12/23/22 12/23/22 12/23/22 19:08 19:08 19:08 WBC RBC Hgb Hct MCV MCH MCHC RDW Plt Count MPV Absolute Nucleated RBC Nucleated RBC % (auto) Sodium Potassium Chloride Carbon Dioxide Anion Gap BUN Creatinine Estim Creat Clear Calc Estimated GFR Random Glucose Calcium Urine Color Dark Yellow Urine Appearance Clear Urine pH 6.5 Ur Specific [place] >= 1.030 H Urine Protein 30 (1+) H Urine Glucose (UA) Negative Urine Ketones Negative Urine Blood Negative Urine Nitrite Negative Ur Leukocyte Esterase Trace H Urine RBC 0-2 Urine WBC 0-5 Ur Squamous Epith Cells 0-2 Urine Bacteria None Seen Hyaline Casts 0-2 Urine Test NEGATIVE Urine Opiates Screen Not Detected Urine Fentanyl Screen Not Detected Ur Barbiturates Screen Not Detected Ur Phencyclidine Scrn Not Detected Ur Amphetamines Screen Not Detected U Benzodiazepines Scrn Not Detected Urine Cocaine Screen Not Detected U Marijuana (THC) Screen Not Detected COVID-19 ([facility]) COVID-19 Clin Com DS: Summary Hospital Course Hospital Course: Admission to adult psychiatry for exacerbation of symptoms of bipolar disorder. Fluoxetine was discontinued. Oxcarbazepine and Gabapentin were initiated and tolerated during the admission. Time spent discussing smoking cessation with patient: 3 to 10 minutes Status at Discharge Functional status at discharge: independent ambulation Overall status at discharge: patient is progressing back to baseline Time Spent with Patient Time attestation: Total time managing care of this patient today ____ minutes. Time spent: Greater than 30 minutes Discharge Plan Discharge Anticipated Discharge Date/Time: 12/28/22 12:45 Patient Disposition: Home, Self-Care Discharge Diagnosis: Bipolar Disorder Referrals: [facility]: (Therapy and Psychiatry) [Other] - Tomorrow (Patient referred for outpatient mental health services Patient should follow-up on referral after discharge from [facility]. Patient will need to show for initial diagnostic evaluation for therapy to receive medication management services. Patient has also been referred for case management services.) Linda Horowitz MD [Physician] - 01/05/23 9:30 am (IN OFFICE) Discharge Medications: New nicotine (polacrilex) 2 mg Gum 2 mg buccal Q2H PRN (Reason: Nicotine Cravings) Qty: 60 0RF oxcarbazepine 300 mg Tablet 300 mg PO BID Qty: 60 0RF triamcinolone acetonide 0.1 % Ointment 1 appl topical DAILY Qty: 10 0RF nicotine 21 mg/24 hr Patch 24 Hour 21 mg transdermal DAILY Qty: 30 0RF gabapentin 300 mg Capsule 300 mg PO TID PRN (Reason: anxiety) Qty: 90 0RF Continued diphenhydramine HCl [Banophen] 25 mg capsule 1 cap PO BEDTIME PRN (Reason: Anxiety) clonidine HCl 0.1 mg tablet 1 tab PO BID Qty: 60 0RF hydroxyzine HCl 25 mg tablet 1 tab PO DAILY Qty: 30 0RF Discontinued fluoxetine 10 mg tablet 1 tab PO QAM Discharge Orders: Discharge Order (Routine); Ordered 12/28/22 Ordered By: Laquita Gooden Diet: Advance to usual diet Activity on Discharge: As tolerated Stand Alone Forms: Patient Portal Discharge page, Community Support Care Plan Goals: Mood and Behavioral Stabilization Health Concerns: Mood and Behavioral Stabilization Plan of Treatment: Follow up with out patient referral appointments Take medications as directed Assessment: non manic, non psychotic non suicidal non homicidal Discharge Date/Time: 12/28/22 11:55
== END 2022-12-28 11:55 | disposition home or self-care (01) | DRG 753 ==
LOC: HO.ED 16:51 → HO.PM5 21:10
PROVIDERS: Admitting Provider Psychiatry & Neurology Psychiatry; Emergency Provider Internal Medicine; Visit Provider Clinical Nurse Specialist Psychiatric/Mental Health, Adult
DX: F31.9 Bipolar disorder, unspecified (principal); R45.851 Suicidal ideations; F17.210 Nicotine dependence, cigarettes, uncomplicated; Z71.6 Tobacco abuse counseling; Z20.822 Contact with and (suspected) exposure to COVID-19; Z88.8 Allergy status to other drugs, medicaments and biological substances; Z79.899 Other long term (current) drug therapy
CPT/HCPCS: 36415; 80048; 80307; 81001; 81025; 85027; 87635; 99285; S9485

== ENCOUNTER 2023-03-04 09:15 | Outpatient (RCR) | payer OTHER, SELFPAY ==
--- NOTE | 2023-02-18 11:14 | P.HPPSP_ITS ---
[facility] Date of Service: 02/18/23 Chief Complaint: depression Sources of Information: patient interviewed, chart reviewed and crisis/core team assessment reviewed HPI Medical Problems Affecting Mental Status: No Narrative: Integrated clinician's assessment, inpatient notes reviewed prior to meeting with patient. Patient is a 32-year-old single female, referred to [facility] through [facility]. Patient recently began outpatient treatment there after being discharged from [facility] inpatient unit, where she was hospitalized from 12/23/2022 through 12/28/2022, due to increased symptoms of depression and anxiety. Had been experiencing an exacerbation of bipolar disorder. While inpatient she was stabilized with discontinuation of fluoxetine, addition of oxcarbamazepine and gabapentin. Has had further medication changes as outpatient since hospitalization. Oxcarbazepine has been stopped, quetiapine initiated, with recent dose increase. Describes current mood as irritable, I get mad easily . Has had increased symptoms of anxiety, depression, feeling hopeless and helpless at times, anhedonia, difficulty with ADLs/IADLs, poor appetite, disrupted sleep, difficulty concentrating. Describes racing thoughts at times. Denies any SI today, although has a history of SI, in the past, with an attempt at age 19. She feels that although she has been stabilized, she is still not at a stable baseline, as she is still experiencing symptoms as mentioned above. At 1st hesitant this morning, but during interview states she is willing to stay in [facility], to participate in groups for further coping skills in structure, as well as further stabilization with medications. Past Psychiatric History: OP: [facility] for medications Referred for psychotherapy but missed the call. IP: [facility], 12/2022 Trials: Sertraline 9lethargy), Fluoxetine (si), trileptal Medical Evaluation Reviewed: Yes [facility] Medical History Foot fracture, left No known health problems Family History: Bipolar Disorder Depression, Anxiety Social History: Born in [place], Raised in the [place], 2 brothers, 1 sister. Raised by mom- old-fashioned upbringing . Parents living-no contact with father. Graduated high school. Mother of an eight year old son Substance History: Nicotine, chronic longstanding, 1 pack per day, current use. Trauma History: affirms Meds/Allergies Meds Home Medications Medication Instructions Recorded Confirmed Type diphenhydramine HCl 25 mg capsule 1 cap PO BEDTIME PRN Anxiety 12/23/22 02/19/23 History (Banophen) hydroxyzine HCl 25 mg tablet 1 tab PO BEDTIME 02/19/23 02/19/23 History quetiapine 100 mg tablet 50 - 100 mg PO BEDTIME PRN Anxiety 02/19/23 02/19/23 History quetiapine 50 mg tablet 50 mg PO BID PRN Anxiety 02/19/23 02/19/23 History Allergies Allergies Allergy/AdvReac Type Severity Reaction Status Date / Time prozac AdvReac Severe suicidal Uncoded 12/24/22 17:59 ideation Mental Status Exam Mental Status Exam Narrative: Well-developed, overweight female, in NAD. No abnormal movements, no tics or tremors. No cogwheeling. Gait/ambulation/posture normal. No perceptual disturbances. Patient Appearance: Appropriate Patient Orientation: Person, Place, Time and Situation Level of Consciousness: Appropriate Patient Behavior: Cooperative, Anxious and Good Eye Contact Mood Description: Anxious and Angry Affect Description: Anxious and Apprehensive Patient Cognition Impaired: No Ability to Follow Directions: Good Speech Pattern: Clear and Appropriate Memory Description: Intact Hallucinations: None Delusions: Not Present Thought Process: Intact Thought Content: positive for Intact Depressive Symptoms: Increased Anxiety, Diff. Making Decisions, Increased Irritability, Difficulty Sleeping, Changes in Appetite (decreased), Loss of Energy and Difficulty Concentrating Judgement: Fair Assessment & Plan Assessment & Plan (1) Bipolar 1 disorder, depressed, moderate: Status: Acute Code(s): F31.32 - Bipolar disorder, current episode depressed, moderate Assessment and Plan: Ms. Avendano a 32-year-old female, referred to [facility] through [facility]. She has begun working with [facility] after inpatient stay at [facility]. She has been hospitalized 12/23/22 - 12/28/22 due to exacerbation of bipolar symptoms. She had been receiving treatment for depression and anxiety. She had been trialed with several medications. She had been taking sertraline, which was not found effective, and she reported lethargy. Medication was then changed to fluoxetine, with which she developed increased active suicidal ideation. States ?it gave me crazy thoughts ?. She has since been treated with mood stabilizers with good effect, although mood continues to be stabilized. She has a history of suicidal ideation with a plan and intent. However today, she states that she is not experiencing SI, and that she feels safe. Has had medication changes since discharge from hospital. No longer taking ox carbamazepine, has been started with quetiapine. She reports this was just recently increased, and that she is taking 50 mg in the daytime, 100 mg at night. She states that it is helpful. However, she reports that she does feel she is not yet stabilized, and describes hypomanic symptoms including difficulty concentrating on 1 task at a time, racing thoughts, distractibility, agitation, difficulty sleeping. We discussed waiting several more days, as she just had medication increase 1-2 days ago. If continues with hypomanic symptoms next week, she is willing to try medication adjustments. Patient was hesitant at 1st this morning, not sure she wished to stay in program. However, during interview, she became less guarded, felt more comfortable. She stated that she realizes she does need further mood stabilization, and also would benefit from the structure and groups in the program, and would like to stay. Plan 1. Continue with current [facility] plan of care. 2. Continue with medications as currently prescribed. 3. Follow-up as per protocol. Patient educated on: diagnosis, medication risk/benefits and therapeutic strategies Informed Consent: understands Reason for continued partial hosp. stay Substantial Risk for: harm to self, inability to function, rapid decompensation and med/psych decompensation Certification I certify that partial hospital treatment is medically necessary due to the symptoms and problems resulting from the patient's mental illness and the failure to treat the patient at the partial hospital level of care would likely result in the patient requiring inpatient psychiatric care which could not be prevented at a less intensive level of care. Time Spent With Patient Time: Total time managing care of this patient today __60__ minutes.
[2023-02-18 13:11] VITALS: BP 124/70; PULSE 88; TEMP 37.1
[2023-02-18 13:16] VITALS: BMI 77.5
--- NOTE | 2023-02-19 08:33 | PC.ADMIT ---
Patient is a 32 year old female who was referred to PHP by [facility] d/t symptoms of mixed mood. Patient dx with Bipolar disorder. Current mood appears to be depressed. Denied SI. Patient reports the last time she worked was in 2019, she stated, the pandemic traumatized me . Patient reports severe anxiety. Struggling with financial issues. Lives alone however she has her 8 year old son on weekends. See Integrative Assessment for more information. Patient is alert and oriented x4. Calm and cooperative. Presents with depressed mood and affect. Denied SI. Patient given a copy of her safety plan if needed and I reviewed the plan with her. Medications reconciled with patient and patient's pharmacy. Patient reports taking medications as prescribed. [ End ]
--- NOTE | 2023-02-25 13:09 | PC.NURSE ---
PHP Prescriber Robyn Shore, [employer] stated she decreased Thierno's Bedtime Seroquel to 50 mg. Changed in Medication reconciliation.
--- NOTE | 2023-02-25 13:36 | HO.PHPPROGNO ---
Subjective Subjective Date of Service: 02/25/23 Reason For Visit: depression Medical Problems Affecting Mental Status: No Interim History: Feels anxious today. States mood is more stable,less depressed, less agitation, less anger. No SI, no safety concerns. Reports last several days numbness and tingling right hand and foot. Medication Compliance: Yes Side effects from medications: Yes (Rt hand and foot numbness and tingling, ? if related to seroquel increase) Attending Groups: Yes Review of Systems Acute medical concerns: No Medical Review of Systems: changed Review of Systems Review of Systems Yes all other systems are reviewed and are negative Musculoskeletal: Reports numbness (right hand/foot) and Reports tingling (rt hand/foot) Reports numbness (right hand/foot) and Reports tingling (rt hand/foot) Comments: says for past several days Mental Status Exam Mental Status Exam Narrative: NAD Patient Appearance: Appropriate Patient Orientation: Person, Place, Time and Situation Level of Consciousness: Appropriate Patient Behavior: Cooperative, Anxious and Good Eye Contact Mood Description: Anxious Affect Description: Anxious Patient Cognition Impaired: No Ability to Follow Directions: Excellent Speech Pattern: Clear and Appropriate Memory Description: Intact Hallucinations: None Delusions: Not Present Thought Process: Intact Thought Content: positive for Intact Depressive Symptoms: Increased Anxiety, Diff. Making Decisions, Increased Irritability, Difficulty Sleeping, Loss of Energy and Difficulty Concentrating Judgement: Fair Diagnostics Vital Signs (24Hr): BMI result Body Mass Index 77.5 Assessment & Plan Assessment & Plan (1) Bipolar 1 disorder, depressed, moderate: Status: Acute Code(s): F31.32 - Bipolar disorder, current episode depressed, moderate Assessment and Plan: Feels anxious today. States mood is more stable, less agitation, less anger. Feels the quetiapine is helping with mood stabilization. Reports improved sleep. Reports practicing coping skills, especially when she feels she may get angry. States that counting, closing her eyes, removing herself from situation briefly has been helpful. No SI, no safety concerns. Reports last several days numbness and tingling right hand and foot. No history diabetes, MS, or carpal tunnel. Believes it is related to the recent increased dose of quetiapine. She also is not taking the gabapentin as frequently. We discussed side effects. Discussed has she is currently taking both gabapentin and Seroquel. She is agreeable to take 50 mg of Seroquel rather than 100 mg at bedtime, to see if this helps relieve side effects. Med currently ordered as 50 to 100mg at bedtime prn for sleep. Also discussed using gabapentin more frequently, as she is only taking it occasionally. She is able to take 300 mg up to 3 times daily as needed p.r.n.. Plan 1. Continue with current [facility] plan of care. 2. Decrease HS p.r.n. quetiapine to 50 mg rather than 100mg, which she has been doing. 3. Continue other medications as prescribed by outpatient provider. 4. Follow-up as per protocol. Patient educated on: diagnosis, medication risk/benefits and therapeutic strategies Informed Consent: understands Reason for contiued partial hosp. stay Substantial Risk for: harm to self, inability to function and rapid decompensation Certification I certify that partial hospital treatment is medically necessary due to the symptoms and problems resulting from the patient's mental illness and the failure to treat the patient at the partial hospital level of care would likely result in the patient requiring inpatient psychiatric care which could not be prevented at a less intensive level of care. Total time managing care of this patient today _20___ minutes. Discharge Plan Discharge Attending provider: Gatito Moise Medications: No Action diphenhydramine HCl [Banophen] 25 mg capsule 1 cap PO BEDTIME PRN (Reason: Anxiety) nicotine (polacrilex) 2 mg Gum 2 mg buccal Q2H PRN (Reason: Nicotine Cravings) Qty: 60 0RF triamcinolone acetonide 0.1 % Ointment 1 appl topical DAILY Qty: 10 0RF nicotine 21 mg/24 hr Patch 24 Hour 21 mg transdermal DAILY Qty: 30 0RF gabapentin 300 mg Capsule 300 mg PO TID PRN (Reason: anxiety) Qty: 90 0RF clonidine HCl 0.1 mg tablet 1 tab PO BID Qty: 60 0RF hydroxyzine HCl 25 mg tablet 1 tab PO BEDTIME Patient Comments: Patient takes at HS. quetiapine 100 mg Tablet 50 mg PO BEDTIME PRN (Reason: Anxiety) Rx Instructions: Take 1/2 tab at HS as needed. quetiapine 50 mg Tablet 50 mg PO BID PRN (Reason: Anxiety)
--- NOTE | 2023-03-04 10:53 | HO.PHPPROGNO ---
Subjective Subjective Date of Service: 03/04/23 Reason For Visit: Bipolar disorder Medical Problems Affecting Mental Status: No Interim History: Continues with some anxiety, states that it has improved a little. Less depressed, feels improved. Feels her mood is more stabilized. No SI, no safety concerns. Utilizing coping skills learned in program. Sees her therapist later today. Has found program helpful. Feels ready for discharge today. Medication Compliance: Yes Side effects from medications: No Attending Groups: Yes Review of Systems Acute medical concerns: No Medical Review of Systems: unchanged Review of Systems Review of Systems Yes all other systems are reviewed and are negative Constitutional: Reports no additional constitutional complaints Mental Status Exam Mental Status Exam Narrative: NAD Patient Appearance: Appropriate Patient Orientation: Person, Place, Time and Situation Level of Consciousness: Appropriate Patient Behavior: Cooperative and Good Eye Contact Mood Description: Appropriate Affect Description: Appropriate Patient Cognition Impaired: No Ability to Follow Directions: Excellent Speech Pattern: Clear and Appropriate Memory Description: Intact Hallucinations: None Delusions: Not Present Thought Process: Intact Thought Content: positive for Intact Depressive Symptoms: Increased Anxiety Judgement: Good Diagnostics Vital Signs (24Hr): BMI result Body Mass Index 77.5 Assessment & Plan Assessment & Plan (1) Bipolar 1 disorder, depressed, moderate: Status: Acute Code(s): F31.32 - Bipolar disorder, current episode depressed, moderate Assessment and Plan: Continues with some anxiety, states that it has improved a little. Less depressed, feels improved. Feels her mood is more stabilized, less labile. Satisfied with current medications, feels that they are at adequate doses. Has her son this weekend, plans to take him to the park. States she is looking forward to this. No SI, no safety concerns. Utilizing coping skills learned in program. Reports that she has found the skills to be helpful, she is less apt to act out when she becomes upset. Sees her therapist later today. Has found program helpful. Feels ready for discharge today. Plan 1. Patient appears stable for discharge from [facility] at this time. 2. Patient to follow-up with outpatient providers going forward. Patient educated on: diagnosis, medication risk/benefits and therapeutic strategies Informed Consent: understands Reason for contiued partial hosp. stay Substantial Risk for: stable for discharge Certification I certify that partial hospital treatment is medically necessary due to the symptoms and problems resulting from the patient's mental illness and the failure to treat the patient at the partial hospital level of care would likely result in the patient requiring inpatient psychiatric care which could not be prevented at a less intensive level of care. Total time managing care of this patient today _20___ minutes. Discharge Plan Discharge Attending provider: Gatito Moise Medications: No Action diphenhydramine HCl [Banophen] 25 mg capsule 1 cap PO BEDTIME PRN (Reason: Anxiety) nicotine (polacrilex) 2 mg Gum 2 mg buccal Q2H PRN (Reason: Nicotine Cravings) Qty: 60 0RF triamcinolone acetonide 0.1 % Ointment 1 appl topical DAILY Qty: 10 0RF nicotine 21 mg/24 hr Patch 24 Hour 21 mg transdermal DAILY Qty: 30 0RF gabapentin 300 mg Capsule 300 mg PO TID PRN (Reason: anxiety) Qty: 90 0RF clonidine HCl 0.1 mg tablet 1 tab PO BID Qty: 60 0RF hydroxyzine HCl 25 mg tablet 1 tab PO BEDTIME Patient Comments: Patient takes at HS. quetiapine 100 mg Tablet 50 mg PO BEDTIME PRN (Reason: Anxiety) Rx Instructions: Take 1/2 tab at HS as needed. quetiapine 50 mg Tablet 50 mg PO BID PRN (Reason: Anxiety) Stand Alone Forms: Patient Portal Discharge page Patient Education: Bipolar Disorder (DC)
--- NOTE | 2023-03-04 15:03 | HO.PHP ---
Contacted OP therapist and left a message for Alexx Martinez. [facility] staff informed the OP therapist of Thierno's discharge from the program.
== END 2023-03-04 23:59 | disposition home or self-care (01) ==
LOC: HO.PHPA 09:15
PROVIDERS: Visit Provider Psychiatry & Neurology Psychiatry
DX: F31.32 Bipolar disorder, current episode depressed, moderate (principal); Z79.899 Other long term (current) drug therapy
CPT/HCPCS: 90791; 90853

== ENCOUNTER 2023-06-22 14:36 | Outpatient (REF) | payer OTHER, SELFPAY ==
[2023-06-24 20:49] LABS: HPV mRNA E6/E7 rflx Not Detected (Not Detected)
== END 2023-06-22 14:37 | disposition home or self-care (01) ==
LOC: HO.HHCLNP 14:36
PROVIDERS: Visit Provider Advanced Practice Midwife
DX: Z12.4 Encounter for screening for malignant neoplasm of cervix (principal); Z11.51 Encounter for screening for human papillomavirus (HPV)
CPT/HCPCS: 87624; 88142

== ENCOUNTER 2024-03-20 10:39 | Outpatient (REF) | payer OTHER, SELFPAY ==
[2024-03-20 10:56] LABS: MANUAL DIFF FLAG NO
[2024-03-20 11:19] LABS: Basophils Absolute Auto 0.1 X10*3/uL (0.0-0.2); Basophils Percent Auto 0.6 % (0-2); Eosinophils Absolute Auto 0.2 X10*3/uL (0.0-0.4); Eosinophils Percent Auto 2.3 % (0-4); Hematocrit 39.5 % (37.0-47.0); Hemoglobin 13.3 g/dl (12.0-16.0); Imm Gran Abs Auto 0.02 X10*3/uL (0.00-0.03); Imm Gran Pct Auto 0.2 % (0.0-0.4); Lymphocytes Absolute Auto 2.8 X10*3/uL (1.2-4.9); Lymphocytes Percent Auto 31.9 % (20-40); Mean Corpuscular HGB Conc 33.7 g/dl (31.0-35.0); Mean Corpuscular Hemoglobin 31.1 pg (27.0-33.0); Mean Corpuscular Volume 92.5 fL (80.0-98.0); Mean Platelet Volume 10.2 fL (9.4-12.3); Monocytes Absolute Auto 0.5 X10*3/uL (0.1-1.2); Monocytes Percent Auto 5.8 % (2-11); Neutrophils Absolute Auto 5.2 x10*3/uL (2.0-8.3); Neutrophils Percent Auto 59.2 % (45-73); Platelet Count 253 X10*3/uL (160-400); Red Blood Count 4.27 X10*6/uL (4.20-5.50); Red Cell Distribution Width 13.4 % (11.0-16.0); White Blood Count 8.8 X10*3/uL (4.8-10.8)
[2024-03-20 12:08] LABS: Alanine Aminotransferase 13 U/L (0-31); Albumin Level 4.1 g/dL (3.5-5.0); Alkaline Phosphatase 82 U/L (39-117); Anion Gap 14 (12-20); Aspartate Amino Transferase 13 U/L (5-31); Bilirubin Direct < 0.2 mg/dL (0.0-0.5); Bilirubin Total 0.2 mg/dL (0.0-1.0); Blood Urea Nitrogen 8 mg/dL (9-16); Calcium 9.6 mg/dL (8.4-10.2); Carbon Dioxide 22 mmol/L (22-29); Chloride 106 mmol/L (96-108); Cholesterol 210 mg/dL (<200); Estimated Glomerular Filt Rate > 60; Glucose Fasting 87 mg/dL (60-99); HDL Cholesterol 47 mg/dL (>40); LDL Cholesterol Calculated 139 mg/dL (<100); Potassium 4.1 mmol/L (3.3-5.1); Sodium 138 mmol/L (135-145); Total Protein 7.1 g/dL (6.5-8.0); Triglycerides 122 mg/dL (<150)
[2024-03-20 12:24] LABS: Thyroid Stimulating Hormone 0.85 uIU/mL (0.32-4.0)
== END 2024-03-20 10:40 | disposition home or self-care (01) ==
LOC: HO.LAB 10:39
PROVIDERS: PCP Student in an Organized Health Care Education/Training Program; Visit Provider Psychiatry & Neurology Psychiatry
DX: Z79.899 Other long term (current) drug therapy (principal)
CPT/HCPCS: 36415; 80048; 80061; 80076; 84443; 85025